=== PATIENT | female | born 1985 | race Caucasian/White ===

== ENCOUNTER 2023-12-07 14:29 | Emergency (ER) | payer OTHER ==
[~2023-12-07] VITALS: Ht 167.6 cm; Wt 95.9 kg
[~2023-12-07 14:29] MED LIST: ABILIFY5 MG PO; LAMOTRIGINE100 MG PO; LITHOBID300 MG PO; NECON1 EAC1 PO
[2023-12-07] MEDS ORDERED: AMOXICILLIN500 MG PO (14:54)
[2023-12-07] MEDS ORDERED: TYLENOL325 MG PO (15:15)
[2023-12-07] MEDS ORDERED: AZITHROMYCIN250 MG PO (15:15)
[2023-12-07] MEDS ORDERED: DIPHENHYDRAMINE25 M2 PO (15:15)
[2023-12-07 15:25] VITALS: PULSE 86; RESP 16; TEMP 98.4; O2SAT 98
== END 2023-12-07 15:26 | disposition home or self-care (01) ==
LOC: FSED 14:33
DX: R05.9 Cough, unspecified (principal); J02.9 Acute pharyngitis, unspecified; G40.909 Epilepsy, unspecified, not intractable, without status epilepticus; F31.9 Bipolar disorder, unspecified; Z11.52 Encounter for screening for COVID-19
CPT/HCPCS: 0223U; 83518; 87400; 99283